=== PATIENT | female | born 1995 | race Caucasian/White ===

== ENCOUNTER 2024-02-10 13:04 | Outpatient (CLI) | payer OTHER ==
[~2024-02-10 13:04] MED LIST: FAMOTIDINE40 MG; PANTOPRAZOLE SO40 MG
== END 2024-02-10 14:12 | disposition home or self-care (01) ==
LOC: NST 13:04
PROVIDERS: ATTEND Obstetrics & Gynecology Maternal & Fetal Medicine
DX: Z34.83 Encounter for supervision of other normal pregnancy, third trimester (principal)

== ENCOUNTER 2024-02-24 08:56 | Outpatient (CLI) | payer OTHER | END 2024-02-24 10:19 | disposition home or self-care (01) | LOC: NST 08:56 | PROVIDERS: ATTEND Obstetrics & Gynecology Maternal & Fetal Medicine | DX: Z34.83 Encounter for supervision of other normal pregnancy, third trimester (principal) ==

== ENCOUNTER 2024-03-01 17:35 | Inpatient (IN) | payer OTHER ==
[~2024-03-01] VITALS: Ht 165.1 cm; Wt 2.7 kg
[2024-03-01] MEDS ORDERED: ERYTHROMYCIN BASE 1 GM TUBE OP ONE ×4 (17:42→20:45)
[2024-03-01] MEDS ORDERED: OXYTOCIN 10 UNITS/ML VIAL ONE (17:42)
[2024-03-01] MEDS ORDERED: RINGERS SOLUTION,LACTATED 1,000 ML IV SCH (17:45)
[2024-03-01] MEDS ORDERED: CEFAZOLIN SODIUM 1,000 MG VIAL ONE ×2 (18:04)
[2024-03-01] MEDS ORDERED: CEFAZOLIN SODIUM 1,000 MG VIAL IV SCH ×2 (18:15→20:45)
[2024-03-01] MEDS ORDERED: CITRIC ACID/SODIUM CITRATE 30 ML BLIST.PACK PO SCH (18:15)
[2024-03-01 18:34] LABS: HEMATOCRIT 36.1 % (36.0-45.00); MEAN CORPUSCULAR HEMOGLOBIN 26.5 pg (27.00-32.0); MEAN CORPUSCULAR HGB CONC 33.1 g/dl (32.0-36.0); PLATELET COUNT 209 K/uL (150-450); RED BLOOD COUNT 4.52 M/uL (4.00-6.00); RED CELL DISTRIBUTION WIDTH 21.8 % (11.5-14.5)
[2024-03-01 18:40] LABS: INR 0.98; PARTIAL THROMBOPLASTIN TIME 30.3 SECONDS (22.0-34.0); PROTHROMBIN TIME 10.3 SECONDS (9.0-11.5)
[2024-03-01] MEDS ORDERED: SUGAMMADEX SODIUM 200 MG/2 ML VIAL IV ONE ×3 (18:40→20:45)
[2024-03-01] MEDS ORDERED: CARBOPROST TROMETHAMINE 250 MCG/ML AMPUL IM ONE ×2 (18:41→20:45)
[2024-03-01 19:05] LABS: ALBUMIN 2.4 gm/dL (3.4-5.0); BILIRUBIN TOTAL 0.32 mg/dL (0.3-1.2); CALCIUM 8.7 mg/dL (8.5-10.1); CREATININE SERUM 0.55 mg/dL (0.55-1.02); GFR 129.78; GLOBULINA 3.8 G/DL (2.4-3.5); POTASSIUM 3.86 mEq/L (3.5-5.1); TOTAL PROTEIN 6.2 gm/dL (6.4-8.2)
[2024-03-01] MEDS ORDERED: KETOROLAC TROMETHAMINE 30 MG VIAL IV SCH (20:33)
[2024-03-01] MEDS ORDERED: KETOROLAC TROMETHAMINE 30 MG VIAL ONE (20:43)
[2024-03-01] MEDS ORDERED: OXYTOCIN 10 UNIT/ML (10ML) IV ONE (20:45)
[2024-03-01] MEDS ORDERED: OXYTOCIN 1,000 ML IV ONE (20:45)
[2024-03-01] MEDS ORDERED: MORPHINE SULFATE 4 MG/ML VIAL IV SCH (21:00)
[2024-03-01] MEDS ORDERED: AZITHROMYCIN 500 MG VIAL IV ONE (22:30)
[2024-03-01 23:00] LABS: ABG PH 7.286 (7.35-7.45); ABG PO2 34.4 mmHg (80-100); ABG pCO2 43.6 mmHg (35-45)
[2024-03-01 23:01] LABS: BASE EXCESS -6.2 mmol/l; BICARBONATE 20.3 mmol/l (23-25); SaO2 56.4 %; Tco2 21.6 mmol/l; o2 21 %
[2024-03-01 23:03] LABS: ABG PH 7.251 (7.35-7.45); ABG pCO2 51.7 mmHg (35-45)
[2024-03-01 23:04] LABS: ABG PO2 24.8 mmHg (80-100); BASE EXCESS -5.5 mmol/l; BICARBONATE 22.2 mmol/l (23-25); Tco2 23.8 mmol/l
[2024-03-01 23:06] LABS: o2 21 %
[2024-03-02] MEDS ORDERED: KETOROLAC TROMETHAMINE 30 MG VIAL ONE (03:15)
[2024-03-02] MEDS ORDERED: ACETAMINOPHEN 500 MG GEL..CAP PO SCH (06:00)
[2024-03-02 06:37] LABS: HEMATOCRIT 29.3 % (36.0-45.00); HEMOGLOBIN 9.8 g/dL (12.0-15.00); MEAN CELL VOLUME 80.6 fL (80.00-100.00); MEAN CORPUSCULAR HEMOGLOBIN 27.1 pg (27.00-32.0); MEAN CORPUSCULAR HGB CONC 33.6 g/dl (32.0-36.0); PLATELET COUNT 189 K/uL (150-450); RED BLOOD COUNT 3.64 M/uL (4.00-6.00); RED CELL DISTRIBUTION WIDTH 20.9 % (11.5-14.5)
[2024-03-02] MEDS ORDERED: DOCUSATE SODIUM 100MG CAP PO SCH (09:00)
[2024-03-02] MEDS ORDERED: GABAPENTIN 300 MG CAPSULE PO SCH (09:00)
[2024-03-02] MEDS ORDERED: SIMETHICONE 125 MG CAPSULE PO SCH (09:00)
[2024-03-02] MEDS ORDERED: PNV,CALCIUM 72/IRON/FOLIC ACID 1 TAB TABLET PO SCH (09:00)
[2024-03-02] MEDS ORDERED: IBUprofen 600 MG TABLET PO SCH (12:00)
[2024-03-02] MEDS ORDERED: MEPERIDINE HCL/PF 25 MG/ML VIAL IV NR (18:00)
[2024-03-02] MEDS ORDERED: PROMETHAZINE HCL 25 MG/ML AMPUL IV NR (18:00)
[2024-03-02] MEDS ORDERED: OxyCODONE HCL/APAP UD (PERCOCET) PO SCH (20:00)
[2024-03-02 21:24] LABS: CREATININE URINE RANDOM 76.7 MG/DL (30-125)
[2024-03-03 05:38] LABS: HEMATOCRIT 26.1 % (36.0-45.00); MEAN CELL VOLUME 81.9 fL (80.00-100.00); MEAN CORPUSCULAR HEMOGLOBIN 27.2 pg (27.00-32.0); MEAN CORPUSCULAR HGB CONC 33.3 g/dl (32.0-36.0); PLATELET COUNT 185 K/uL (150-450); RED BLOOD COUNT 3.19 M/uL (4.00-6.00); RED CELL DISTRIBUTION WIDTH 21.4 % (11.5-14.5)
[2024-03-03 05:39] LABS: HEMOGLOBIN 8.7 g/dL (12.0-15.00)
[2024-03-03 05:56] LABS: ALBUMIN 1.9 gm/dL (3.4-5.0); BILIRUBIN TOTAL 0.28 mg/dL (0.3-1.2); CALCIUM 8.5 mg/dL (8.5-10.1); CREATININE SERUM 0.5 mg/dL (0.55-1.02); GFR 144.87; GLOBULINA 3.1 G/DL (2.4-3.5); POTASSIUM 3.5 mEq/L (3.5-5.1)
== END 2024-03-04 13:03 | disposition home or self-care (01) | DRG 786 ==
LOC: O/R 17:35 → OB/GYN 17:35 → LDR 17:35 → O/R 19:40 → OB/GYN 21:20
PROVIDERS: ADMIT Obstetrics & Gynecology Gynecology; ATTEND Obstetrics & Gynecology Gynecology
PROC: 4A1HXCZ Monitoring of Products of Conception, Cardiac Rate, External Approach (ICD-10-PCS; 2024-03-01)
PROC: 10D00Z1 Extraction of Products of Conception, Low, Open Approach (ICD-10-PCS; principal; 2024-03-01 19:00)
DX: O62.1 Secondary uterine inertia (principal); O60.14X2 Preterm labor third trimester with preterm delivery third trimester, fetus 2; O32.1XX1 Maternal care for breech presentation, fetus 1; O30.043 Twin pregnancy, dichorionic/diamniotic, third trimester; Z3A.36 36 weeks gestation of pregnancy; Z37.2 Twins, both liveborn; Z20.822 Contact with and (suspected) exposure to COVID-19

== ENCOUNTER 2024-04-13 06:21 | Day surgery (SDC) | payer OTHER ==
[2024-04-08 11:03] LABS: HEMATOCRIT 34.5 % (36.0-45.00); HEMOGLOBIN 11.2 g/dL (12.0-15.00); MEAN CELL VOLUME 80.2 fL (80.00-100.00); MEAN CORPUSCULAR HGB CONC 32.4 g/dl (32.0-36.0); PLATELET COUNT 300 K/uL (150-450); RED CELL DISTRIBUTION WIDTH 17.4 % (11.5-14.5)
[2024-04-08 11:05] LABS: PH,URINE 5.5 (5.0-8.0); URINE APPEARANCE Clear; URINE BILIRRUBIN Negative (NEGATIVE); URINE BLOOD Negative; URINE COLOR Yellow; URINE GLUCOSE Negative (NEGATIVE); URINE KETONE Negative (NEGATIVE); URINE LEUKOCYTE Negative; URINE NITRATE Negative; URINE PROTEIN Negative (NEGATIVE); URINE UROBILINOGEN 0.2 E.U./dl
[2024-04-08 11:06] LABS: URINE BACTERIA 11.3 uL (0.0-1933); URINE WBC 2.6 uL (0.0-23.2)
[2024-04-08 11:26] LABS: INR 1.05; PARTIAL THROMBOPLASTIN TIME 32.4 SECONDS (22.0-34.0); PROTHROMBIN TIME 11.4 SECONDS (9.0-11.5)
[2024-04-08 11:30] LABS: ALBUMIN 3.6 gm/dL (3.4-5.0); BILIRUBIN TOTAL 0.32 mg/dL (0.3-1.2); CALCIUM 9.4 mg/dL (8.5-10.1); CREATININE SERUM 0.68 mg/dL (0.55-1.02); GFR 101.59; GLOBULINA 4.2 G/DL (2.4-3.5); POTASSIUM 3.78 mEq/L (3.5-5.1); TOTAL PROTEIN 7.8 gm/dL (6.4-8.2)
[~2024-04-13 06:21] MED LIST changes: +LOVENOX60 MG/0.6 SUBCUTANEO
[2024-04-13] MEDS ORDERED: POVIDONE-IODINE 118 ML BOTT TOP ONE (09:11)
[2024-04-13] MEDS ORDERED: BUPIVACAINE HCL/MPF 0.5% 30ML VIAL ONE (09:12)
[2024-04-13] MEDS ORDERED: LIDOCAINE HCL 1%/EPINEPHRINE 20ML VIAL IJ ONE (10:31)
[2024-04-13] MEDS ORDERED: RINGERS SOLUTION,LACTATED 1,000 ML IV SCH (11:15)
== END 2024-04-13 13:40 | disposition home or self-care (01) ==
LOC: CIR.AMB 06:21
PROVIDERS: ATTEND Obstetrics & Gynecology Gynecology
DX: Z30.2 Encounter for sterilization (principal)